=== PATIENT | male | born 2000 | race Caucasian/White ===

== ENCOUNTER 2023-11-28 08:54 | Emergency (ER) | payer OTHER ==
[~2023-11-28] VITALS: Ht 185.4 cm; Wt 77.2 kg
[2023-11-28 08:56] VITALS: TEMP 96.4
[2023-11-28] MEDS: LIDOCAINE 1% 10 ML VIAL SQ ONE (09:27)
[2023-11-28] MEDS: BACITRACIN 0.9 GM PACKET OINTMENT TP ONE (09:27)
[2023-11-28] MEDS: ACETAMINOPHEN 500 MG TABLET PO ONE (09:27)
[2023-11-28 09:42] VITALS: BP 120/60; PULSE 82; RESP 18
[2023-11-28] MEDS: BACITRACIN 28 GM OINTMENT TP ONE (10:14)
== END 2023-11-28 10:15 | disposition home or self-care (01) ==
LOC: EMS 08:56
DX: S91.111A Laceration without foreign body of right great toe without damage to nail, initial encounter (principal); X58.XXXA Exposure to other specified factors, initial encounter; Y93.89 Activity, other specified; Y92.89 Other specified places as the place of occurrence of the external cause; Y99.8 Other external cause status
CPT/HCPCS: 99284; 12002; J3490; 99283